=== PATIENT | female | born 1980 | race African-American/Black ===

== ENCOUNTER 2016-09-19 07:44 | Emergency (ER) | payer OTHER ==
[2016-09-19] MEDS ORDERED: AMOXicillin 250 MG CAP ONE ×2 (08:09)
== END 2016-09-19 08:15 | disposition home or self-care (01) ==
LOC: BURERS 07:44
DX: H01.002 Unspecified blepharitis right lower eyelid (principal); E11.9 Type 2 diabetes mellitus without complications; I10 Essential (primary) hypertension; Z79.899 Other long term (current) drug therapy
CPT/HCPCS: 99283